=== PATIENT | male | born 1995 | race Caucasian/White ===

== ENCOUNTER 2024-09-23 17:07 | Emergency (ER) | payer OTHER ==
[~2024-09-23] VITALS: Ht 175.3 cm; Wt 59.0 kg
[2024-09-23 17:46] LABS: PLATELET COUNT (AUTO) 254 K/uL (150-450); RED BLOOD CELL COUNT(AUTO) 4.98 MIL/uL (4.50-5.90); RED CELL DISTRIBUTION WIDTH 13.0 % (11.5-14.5); WHITE BLOOD COUNT (AUTO) 9.1 K/uL (4.5-11.0)
[2024-09-23 17:55] LABS: GLUCOMETER DEV NAME(LOC) ER.7; GLUCOSE,POINT OF CARE 103 MG/DL (70-110)
[2024-09-23 18:01] LABS: CALCIUM, TOTAL 9.4 mg/dL (8.8-10.5); CREATININE 0.86 mg/dL (0.60-1.30); GLOMERULAR FILTR. RATE CALC > 60 mL/min (>60); GLUCOSE,RANDOM 103 mg/dL (70-110); SODIUM SERUM 140 mmol/L (136-145); UREA NITROGEN, BLOOD 11 mg/dL (7-18)
[2024-09-23 19:34] LABS: APPEARANCE,URINE CLEAR (CLEAR); GLUCOSE, URINE (UA) NEGATIVE (NEGATIVE); LEUKOCYTE ESTERASE ,URINE NEGATIVE (NEGATIVE); NITRATE,URINE NEGATIVE (NEGATIVE); OCCULT BLOOD,URINE NEGATIVE (NEGATIVE); SPECIFIC GRAVITIY, URINE 1.006 (1.003-1.030)
[2024-09-23 22:30] VITALS: BP 118/67; PULSE 68; RESP 18; O2SAT 100
== END 2024-09-23 23:24 | disposition home or self-care (01) ==
LOC: EMS 17:07
DX: R42 Dizziness and giddiness (principal); K59.00 Constipation, unspecified; F41.9 Anxiety disorder, unspecified; G35 Multiple sclerosis; F12.90 Cannabis use, unspecified, uncomplicated
CPT/HCPCS: 80048; 81003; 82962; 85025; 93005; 99284